=== PATIENT | female | born 1985 ===

== ENCOUNTER 2017-05-01 11:45 | Observation (INO) | payer MEDICAID | END 2017-05-01 13:43 | disposition home or self-care (01) | DRG 566 | LOC: LDRP 11:45 | PROVIDERS: ADMIT Specialist; ATTEND Specialist | DX: O26.893 Other specified pregnancy related conditions, third trimester (principal); Z3A.38 38 weeks gestation of pregnancy | CPT/HCPCS: 59025; 76818; 81002; 82948; 82962; G0378 ==

== ENCOUNTER 2017-05-05 14:30 | Observation (INO) | payer MEDICAID | END 2017-05-05 16:40 | disposition home or self-care (01) | DRG 566 | LOC: LDRP 14:30 | PROVIDERS: ADMIT Obstetrics & Gynecology; ATTEND Obstetrics & Gynecology | DX: O24.419 Gestational diabetes mellitus in pregnancy, unspecified control (principal); Z3A.38 38 weeks gestation of pregnancy | CPT/HCPCS: 59025; 76818; 81002; G0378 ==

== ENCOUNTER 2017-05-09 09:10 | Observation (INO) | payer MEDICAID | END 2017-05-09 11:10 | disposition home or self-care (01) | DRG 566 | LOC: LDRP 09:10 | PROVIDERS: ADMIT Obstetrics & Gynecology; ATTEND Obstetrics & Gynecology | DX: O26.893 Other specified pregnancy related conditions, third trimester (principal); R10.9 Unspecified abdominal pain; Z3A.39 39 weeks gestation of pregnancy | CPT/HCPCS: 59025; 76818; 81002; 82962; G0378 ==

== ENCOUNTER 2017-05-14 10:15 | Inpatient (IN) | payer MEDICAID ==
[~2017-05-14] VITALS: Ht 170.2 cm; Wt 88.0 kg
[2017-05-14] MEDS ORDERED: LACT. RINGERS/OXYTOCIN 20UNITS 1,000 ML IV SCH (12:27)
[2017-05-14] MEDS ORDERED: LACTATED RINGER'S 1,000 ML IV SCH (12:27)
[2017-05-14] MEDS ORDERED: WITCH HAZEL-GLYCERIN PAD TOP PRN (12:30)
[2017-05-14] MEDS ORDERED: CARBOPROST TROMETHAMINE 250 MCG/1ML VIAL IM PRN (12:30)
[2017-05-14] MEDS ORDERED: LIDOCAINE 2%HCL (LOCAL ANESTH.) INJ 20ML MDV IJ ONE (12:30)
[2017-05-14] MEDS ORDERED: METHYLERGONOVINE MALEATE 0.2 MG/ML AMP IM PRN (12:30)
[2017-05-14] MEDS ORDERED: DERMOPLAST 60ML BOTTLE TOP PRN (12:30)
[2017-05-14] MEDS ORDERED: NALBUPHINE HCL 10 MG/1ml INJECTION IV PRN (12:30)
[2017-05-14] MEDS ORDERED: PHISODERM TOP SOLN 240ML BTL TOP PRN (12:30)
[2017-05-14 12:50] LABS: Urine Bilirubin Negative (Negative); Urine Blood Negative /uL (Negative); Urine Color Yellow (Yellow); Urine Glucose Normal (Normal); Urine Ketone Negative (Negative); Urine Mucus FEW (None Seen); Urine Nitrite Negative (Negative); Urine RBC 1 /hpf (0 - 4); Urine Squamous Epithelial Cell FEW /hpf (<5); Urine Urobilinogen Normal (Negative)
[2017-05-14 13:14] LABS: Basophils # (auto) 0 uL; Basophils % (auto) 0.2 % (0.0-2.0); CONDITION Y; Eosinophils # (auto) 0.1 uL; Eosinophils % (auto) 0.5 % (0.0-7.0); Hematocrit 35.8 % (36.0-46.0); Hemoglobin 12.3 g/dL (12.2-16.2); Lymphocytes % (auto) 17.6 % (10.0-50.0); Mean Corpuscular Hemoglobin 32.7 pg (28.0-32.0); Mean Corpuscular Hgb Conc. 34.4 g/dL (32.0-36.0); Mean Corpuscular Volume 95.1 fL (80.0-100.0); Mean Platelet Volume 8.6 fL (7.4-10.4); Monocytes # (auto) 0.7 uL; Monocytes % (auto) 3.9 % (0.0-12.0); Neutrophils # (auto) 13.2 uL; Neutrophils % (auto) 77.8 % (37.0-80.0); Platelet Count (auto) 317 10^3/uL (140-450); Red Cell Distribution Width 14.9 % (11.6-16.0)
[2017-05-14 13:28] LABS: INR 0.86 (0.9-1.15); Partial Thromboplastin Time 24.3 sec (22.64-33.71); Prothrombin Time 9.4 sec (9.37-12.3)
[2017-05-14 13:36] LABS: Albumin 2.5 g/dL (3.4-5.0); BUN/Creatinine Ratio 26.4; Calcium 8.6 mg/dL (8.5-10.1); Potassium 4.1 mmol/L (3.5-5.1)
[2017-05-14 13:38] LABS: Bilirubin, Total 0.3 mg/dL (0.2-1.0); Total Protein 6.7 g/dL (6.4-8.2)
[2017-05-14] MEDS: ACCU-CHEK COMFORT CURVE STRIP VI SCH (16:15)
[2017-05-14] MEDS ORDERED: PREN-96 PO (17:43)
[2017-05-14] MEDS ORDERED: PROMETHAZINE HCL 25 MG/ML 1ML IV ONE (20:00)
[2017-05-14] MEDS: IBUPROFEN 600 MG TAB PO PRN (22:38)
[2017-05-15] MEDS: IBUPROFEN 600 MG TAB PO PRN ×5 (03:36→19:59)
[2017-05-15 06:45] LABS: Basophils # (auto) 0 uL; CONDITION Y; Eosinophils # (auto) 0.1 uL; Eosinophils % (auto) 0.4 % (0.0-7.0); Hematocrit 26.8 % (36.0-46.0); Hemoglobin 9.4 g/dL (12.2-16.2); Lymphocytes # (auto) 3.7 uL; Lymphocytes % (auto) 17.1 % (10.0-50.0); Mean Corpuscular Hemoglobin 32.9 pg (28.0-32.0); Mean Corpuscular Hgb Conc. 35.2 g/dL (32.0-36.0); Mean Corpuscular Volume 93.5 fL (80.0-100.0); Mean Platelet Volume 8.2 fL (7.4-10.4); Monocytes # (auto) 0.8 uL; Monocytes % (auto) 3.5 % (0.0-12.0); Neutrophils # (auto) 17.1 uL; Platelet Count (auto) 302 10^3/uL (140-450); Red Cell Distribution Width 14.8 % (11.6-16.0); White Blood Cell 21.6 10^3/uL (4.4-10.8)
[2017-05-15 07:30] VITALS: BP 104/62
[2017-05-15 11:45] VITALS: BP 100/57
[2017-05-15 16:30] VITALS: BP 116/55
[2017-05-15] MEDS: ACETAMINOPHEN 325 MG TAB PO PRN (16:43)
[2017-05-15 20:00] VITALS: BP 96/59
[2017-05-15] MEDS: ACCU-CHEK COMFORT CURVE STRIP VI SCH (22:00)
[2017-05-16] VITALS: BP 97/64
[2017-05-16] MEDS: ACCU-CHEK COMFORT CURVE STRIP VI SCH ×2 (02:00→06:00)
[2017-05-16] MEDS: IBUPROFEN 600 MG TAB PO PRN (03:07)
[2017-05-16 04:00] VITALS: BP 96/52
[2017-05-16] MEDS ORDERED: TETANUS-DIPTH-ACEL PERTUSSIS 0.5ML SYRG IM ONE (05:30)
[2017-05-16 06:59] VITALS: BP 93/50
[2017-05-16] MEDS ORDERED: MEASLES, MUMPS & RUBELLA VAC(MMRII) 0.5ML SC ONE (10:15)
[2017-05-16] MEDS: ACETAMINOPHEN 325 MG TAB PO PRN (10:22)
[2017-05-16 10:32] VITALS: BP 104/63
== END 2017-05-16 11:00 | disposition home or self-care (01) | DRG 560 ==
LOC: LDRP 10:15 → OBSVTOIN 10:15 → LDRP 11:16
PROVIDERS: ADMIT Specialist; ATTEND Specialist
PROC: 10E0XZZ Delivery of Products of Conception, External Approach (ICD-10-PCS; principal; 2017-05-14)
DX: O62.3 Precipitate labor (principal); O24.420 Gestational diabetes mellitus in childbirth, diet controlled; O69.81X0 Labor and delivery complicated by cord around neck, without compression, not applicable or unspecified; Z37.0 Single live birth; Z23 Encounter for immunization; Z3A.40 40 weeks gestation of pregnancy; Z91.14 Patient's other noncompliance with medication regimen
CPT/HCPCS: 36415; 59025; 59409; 76818; 80053; 80307; 81001; 82948; 82962; 85025; 85610; 85730; 86850; 86870; 86900; 86901; 90471; 90472; 90715; 96361; 96366; 96372; 96374; 96375; G0378; J2590